=== PATIENT | female | born 1975 | race Caucasian/White ===

== ENCOUNTER 2017-02-04 16:37 | Emergency (ER) | payer OTHER ==
[~2017-02-04] VITALS: Ht 167.6 cm; Wt 54.0 kg
[~2017-02-04 16:37] MED LIST: CARAFATE1 GM PO; OMEPRAZOLE20 MG PO
== END 2017-02-04 21:35 | disposition home or self-care (01) ==
LOC: ED 16:37
DX: K59.00 Constipation, unspecified (principal)
CPT/HCPCS: 74020; 74177; 80053; 81001; 85025; 96361; 96374; 96375; 99284; J1885; J2405; J7030; Q9967